=== PATIENT | male | born 1965 | race Caucasian/White ===

== ENCOUNTER 2016-08-29 13:42 | Outpatient (CLI) | payer OTHER ==
--- NOTE | 2016-08-29 15:06 | DIAGNOSTIC IMAGING REPORT ---
PROCEDURE: US ART LOWER EXT WITH SHANIKA-B/L INDICATION: Peripheral arterial disease, diabetic, history of smoking. TECHNIQUE: Color Doppler duplex imaging of the lower extremity arterial system was performed bilaterally. Pre and post exercise ABIs were acquired. COMPARISON: None. FINDINGS: RIGHT LOWER EXTREMITY: ABIs: Pre exercise posterior tibial: 1.3. Pre exercise dorsalis pedis: 1.2. Postexercise posterior tibial: 1.0. Postexercise dorsalis pedis: 0.8. VESSELS/ WAVEFORMS: Triphasic arterial flow throughout the right lower extremity arterial system. No focal calcific plaque visible. No stenoses. RIGHT LOWER EXTREMITY PEAK SYSTOLIC VELOCITIES: Common femoral artery: 105 cm/second. Profunda femoral artery: 64 cm/second. Proximal superficial femoral artery: 98 cm/second. Mid superficial femoral artery: 76 cm/second. Distal superficial femoral artery: 65 cm/second. Popliteal artery: 75 cm/second. Proximal posterior tibial artery: 65 cm/second. Proximal anterior tibial artery: 54 cm/second. Distal posterior tibial artery: 63 cm/second. Dorsalis pedis artery: 30 cm/second. LEFT LOWER EXTREMITY: ABIs: Pre exercise posterior tibial: 1.2. Pre exercise dorsalis pedis: 1.1. Postexercise posterior tibial: 1.0. Postexercise dorsalis pedis: 1.1. VESSELS/ WAVEFORMS: Triphasic arterial flow throughout the left lower extremity. No significant stenosis or significant focal plaque. LEFT LOWER EXTREMITY PEAK SYSTOLIC VELOCITIES: Common femoral artery: 89 cm/second. Profunda femoral artery: 59 cm/second. Proximal superficial femoral artery: 176 cm/second. Mid superficial femoral artery: 78 cm/second. Distal superficial femoral artery: 84 cm/second. Popliteal artery: 49 cm/second. Proximal posterior tibial artery: 56 cm/second. Proximal anterior tibial artery: 52 cm/second. Distal posterior tibial artery: 36 cm/second. Dorsalis pedis artery: 37 cm/second. IMPRESSION: 1. Mild to moderate exercise-induced arterial insufficiency of the right dorsalis pedis artery. No arterial insufficiency at rest. 2. No hemodynamically significant focal arterial calcification or stenosis in either lower extremity arterial system. 3. Triphasic arterial flow in both lower extremities.
== END 2016-08-29 23:00 ==
LOC: US SRH 13:42
DX: I73.9 Peripheral vascular disease, unspecified (principal)